=== PATIENT | male | born 1965 | race Caucasian/White ===

== ENCOUNTER 2016-03-26 15:25 | Outpatient (CLI) ==
[2014-02-08 15:52] VITALS: BMI 31.9
--- NOTE | 2016-03-26 15:52 | DI ---
EXAM: LUMBAR SPINE 5 VIEWS HISTORY: Degenerative disc disease. FINDINGS: No comparison. Normal bone density. No scoliosis. Mild bilateral periarticular scleros is of the sacroiliac joints more noticeable on the right. Bilateral oblique views reveal intact par s interarticularis structures. No loss of vertebral body height or acute fracture. No spondylolist hesis. Mild degenerative endplate changes lower spine. Moderate facet arthropathy lower spine. In cidental note of previous left hip arthroplasty. Bone lucency adjacent to the acetabular cup is ind eterminate. IMPRESSION: 1. Moderate facet arthropathy lower spine. Mild degenerative endplate changes at the same level. No listhesis. 2. Incidental note of lucency around the acetabular cup of the left hip prosthesis. No prior studi es in this region are available. Consider correlation with hip radiography.
== END 2016-03-26 15:26 | disposition home or self-care (01) ==
LOC: RAD 15:25
PROVIDERS: ATTEND Pain Medicine Interventional Pain Medicine
DX: M51.36 Other intervertebral disc degeneration, lumbar region (principal); M51.37 Other intervertebral disc degeneration, lumbosacral region

== ENCOUNTER 2016-06-30 14:57 | Outpatient (CLI) ==
[2014-02-08 15:52] VITALS: BMI 31.9
--- NOTE | 2016-06-30 15:23 | DI ---
EXAM: Two views of the left hip. History: Left hip pain. Comparison: None available. Findings: No acute fracture or dislocation. Left total hip arthroplasty hardware is grossly intact. There is cement seen within the acetabulum, possibly from a revision. Osteopenia. Impression: No acute osseous abnormality.
== END 2016-06-30 14:58 | disposition home or self-care (01) ==
LOC: RAD 14:57
PROVIDERS: ATTEND Pain Medicine Interventional Pain Medicine
DX: M25.552 Pain in left hip (principal)

== ENCOUNTER 2017-12-14 09:42 | Day surgery (SDC) ==
[2014-02-08 15:52] VITALS: BMI 31.9
[2017-12-14 10:52] VITALS: TEMP 98.6
[2017-12-14] MEDS ORDERED: VERSED ONE (12:03)
[2017-12-14] MEDS ORDERED: DIPRIVAN 20 ML VIAL IVP ONE (12:03)
--- NOTE | 2017-12-15 10:02 | OP ---
INDICATIONS FOR PROCEDURE: 52-year-old gentleman presents for a screening colonoscopy exam. He has a family history of colon cancer involving his mother. MEDICATIONS: SEE ANESTHESIA NOTES. PROCEDURE: COLONOSCOPY. REPORT: The risks, benefits, alternatives and limitations were discussed in detail with the patient. Informed consent was obtained. After adequate sedation was achieved, a digital rectal exam revealed good tone, no masses. The colonoscope was introduced into the rectum and advanced under direct visual guidance to the cecum. The cecum was identified by the appendiceal orifice and IC valve. I then slowly withdrew the scope in circumferential manner examining the mucosa quite carefully. I looked on the proximal and distal side of folds and flexures as best as possible. I was able to retroflex the scope in the right colon and left colon to increase visualization. The colonic mucosa is unremarkable its entire length except for a few diverticula scattered throughout the sigmoid. On retroflex view of the anal canal there was a non engorged internal hemorrhoid. The prep was good. The withdrawal time was 9 minutes and 25 seconds. The patient tolerated the procedure well with stable vital signs and pulse oximetry throughout. IMPRESSION: 1. SIGMOID DIVERTICULOSIS 2. SMALL NON ENGORGED INTERNAL HEMORRHOID RECOMMENDATIONS: 1. High fiber diet. 2. Office visit as needed. 3. Consider colon screening examination again in 5 years with colonoscopy based on the family history of colon cancer, sooner is signs or symptoms would indicate otherwise. CC: DR. MELONIE WATSON
[2017-12-16 13:52] VITALS: BP 111/63
== END 2017-12-14 13:30 | disposition home or self-care (01) ==
LOC: SURG 09:42
PROVIDERS: ATTEND Internal Medicine Gastroenterology
DX: Z80.0 Family history of malignant neoplasm of digestive organs (principal); Z86.010 Personal history of colon polyps; K57.90 Diverticulosis of intestine, part unspecified, without perforation or abscess without bleeding; K64.8 Other hemorrhoids

== ENCOUNTER 2018-05-06 07:00 | Outpatient (CLI) ==
[2014-02-08 15:52] VITALS: BMI 31.9
--- NOTE | 2018-05-06 23:00 | MRI ---
EXAM: MRI lumbar spine without IV contrast. DATE: 05/06/2018. HISTORY: Lumbar disc degeneration with radiculopathy. Low back pain and bilateral lower extremity r adiculopathy. TECHNIQUE: Sagittal and axial T1W and T2W sequences of the lumbar spine along with sagittal IR and c oronal T2W sequences were obtained using 1.2 Rashida magnet. No IV contrast. COMPARISON: LS spine series 26 March 2016. FINDINGS: There are five [id number] lumbar vertebra. No lumbar scoliosis is evident. A 2.8 mm anterolisthesis of L5 relative to S1 is noted. A 2.8 mm retrolisthesis of L5 relative to S1 is obse rved. No other subluxation, acute fracture, osseous malignancy, or pars interarticularis defect is d emonstrated. Lumbar vertebra are normal in height. Bone marrow signal is overall normal. Disc bharti ccation and minor disc space narrowing are detected at L4-5. Remaining intervertebral discs are norm al in height. No acute sacral fracture or stress reaction is demonstrated. SI joints are unremarkab le. Conus medullaris terminates at L1-2. Visible spinal cord reveals no definitive syrinx, cord yelitza ma, myelomalacia, or neoplasm. No retroperitoneal lymphadenopathy, paraspinal mass, or aortic aneurysm is identified. This scleroti c plaques are present within the distal abdominal aorta and common iliac arteries. Left psoas muscle is moderately atrophic inferiorly. Left iliacus muscle is also demonstrates fatty infiltration. Vi sible portions of the liver, spleen, adrenal glands and kidneys reveal no distinct abnormality. CBD is normal. Segmental analysis: T11-12: Sagittal images reveal minor right foraminal narrowing due to mild facet arthropathy. No ce ntral canal stenosis. T12-L1: Normal. L1-2: Normal. L2-3: Normal. L3-4: Normal. L4-5: Small concentric disc bulge and mild facet arthropathy cause mild/moderate narrowing at the op ening to each foramen. Right L4 nerve root appears to contact the disc bulge near the lateral margin of the foramen. No central canal stenosis. L5-S1: Minor retrolisthesis of L5, pseudodisc bulge, and mild facet arthropathy cause minor right an d mild/moderate left foraminal stenoses. Left L5 nerve root appears to contact the disc bulge latera l to the foramen. IMPRESSIONS: 1. L-spine minor DDD, mild facet arthropathy, and L5-S1 minor subluxation. 2. L4-5 and L5-S1 foraminal stenoses as described. Right L4 and left L5 nerve roots contact disc bu lges near the foramen, and could be sources for pain/radiculopathy. 3. No lumbar spine central canal stenosis. 4. Mild aortic and iliac artery atherosclerosis.
== END 2018-05-06 07:01 | disposition home or self-care (01) ==
LOC: RAD 07:00
PROVIDERS: ATTEND Pain Medicine Interventional Pain Medicine
DX: M51.16 Intervertebral disc disorders with radiculopathy, lumbar region (principal); M51.36 Other intervertebral disc degeneration, lumbar region; M51.37 Other intervertebral disc degeneration, lumbosacral region

== ENCOUNTER 2018-06-30 09:47 | Outpatient (CLI) ==
[2014-02-08 15:52] VITALS: BMI 31.9
--- NOTE | 2018-06-30 11:04 | MRI ---
Examination: MRI of the cervical spine without contrast 06/30/2018 Clinical information: Cervical degenerative disc disease. Comparison: None TECHNIQUE: Sagittal and axial T1 and T2W imaging, sagittal STIR, coronal T2 and 3-D axial T2W sequen guadalupe were performed. FINDINGS: The craniocervical junction is unremarkable. The cervical spinal cord is normal in overal l signal, size and morphology. The cervical vertebral bodies are normal in height, AP alignment and intrinsic marrow signal intensity. No significant loss of disc height. Minimal C3-C6 ventral spondy losis. There is no abnormal marrow edema. No paravertebral edema is seen. There is a developmental ly narrow cervical central spinal canal. At the C2-C3 level, there is a small central disc protrusion eccentric right. No cord deformity or c entral spinal canal stenosis. At the C3-C4 level, there is a minimal disc bulge which effaces the ventral CSF space. Mild central spinal canal stenosis. No foraminal stenosis. At the C4-C5 level, there is a minimal disc bulge which effaces the ventral CSF space. There is mild central spinal canal stenosis. There is mild bilateral facet hypertrophy. No foraminal stenosis. At the C5-6 level, there is a broad-based central disc protrusion which indents the cord causing mild -moderate central spinal canal stenosis. There is mild right greater than left facet hypertrophy. N o foraminal stenosis. At the C6-C7 level, there is a small central disc protrusion which contacts ventral cord. There is m ild central spinal canal stenosis. No significant cord deformity. Mild bilateral facet hypertrophy. No foraminal stenosis. At the C7-T1 level, there is mild bilateral facet hypertrophy. Impression: 1. Slight developmental narrowing of the central spinal canal. 2. Mild-moderate C5-6 central spinal canal stenosis secondary to a central disc protrusion which ind ents the cord. 3. Mild C6-C7 central spinal canal stenosis secondary to a small central disc protrusion. No cord d eformity. 4. Mild C3-C4 and C4-C5 central spinal canal stenosis secondary to broad-based disc bulges. 5. No foraminal stenosis.
== END 2018-06-30 09:48 | disposition home or self-care (01) ==
LOC: RAD 09:47
PROVIDERS: ATTEND Pain Medicine Interventional Pain Medicine
DX: M50.320 Other cervical disc degeneration, mid-cervical region, unspecified level (principal); M50.33 Other cervical disc degeneration, cervicothoracic region; M47.812 Spondylosis without myelopathy or radiculopathy, cervical region; M47.813 Spondylosis without myelopathy or radiculopathy, cervicothoracic region